=== PATIENT | female | born 2000 | race Caucasian/White ===

== ENCOUNTER 2021-01-05 21:09 | Inpatient (IN) ==
[2021-01-05] MEDS ORDERED: ONDANSETRON 4 MG/2 ML VIAL IV PRN (21:19)
[2021-01-05] MEDS ORDERED: MEPERIDINE 50 MG/1 ML VIAL IV PRN (21:19)
[2021-01-05 22:01] LABS: Basophils # 0.1 10*3/uL (0.0-0.2); Basophils % 0.4 % (0.0-0.8); Eosinophils # 0.1 10*3/uL (0.0-0.87); Eosinophils % 0.8 % (0.00-10.9); Hematocrit 32.6 VOL% (35.7-47.0); Hemoglobin 10.8 GM/DL (12.0-16.0); Immature Granulocytes % 0.7 %; Immature Granulocytes Absolute 0.08 #; Lymphocytes # 3.7 10*3/uL (1.4-4.0); Lymphocytes % 31.6 % (21.3-54.2); Mean Corpuscular HGB Conc 33.1 GM/DL (32-36); Mean Corpuscular Volume 89.6 FL (87-102); Mean Platelet Volume 11.3 FL (9.6-12.0); Monocytes % 7.2 % (1.7-12.7); Neutrophils % 59.3 % (38.7-73.9); Platelet Count 296 T/CUMM (130-400); Red Blood Count 3.64 MC/CUMM (3.8-5.5); Red Cell Distribution Width 12.8 % (9.3-17.3); White Blood Count 11.7 T/CUMM (4-12)
[2021-01-05 22:24] LABS: Albumin 2.8 G/DL (3.4-5.0); Bilirubin,Total 0.7 MG/DL (0.20-1.00); Calcium 8.4 MG/DL (8.5-10.1); Osmolality,Calculated 267.8 MOS/KG (273-304); Potassium 3.5 MMOL/L (3.5-5.1)
[2021-01-06] MEDS: LACTATED RINGERS 1,000 ML IV SCH ×3 (00:14→22:35)
[2021-01-06] MEDS: BUTORPHANOL 2 MG/ML VIAL IV PRN ×2 (14:02→17:21)
[2021-01-06] MEDS ORDERED: FAMOTIDINE 20 MG/2 ML VIAL IV ONE (19:09)
[2021-01-06] MEDS ORDERED: PROMETHAZINE 25 MG/1 ML VIAL IM PRN (19:09)
[2021-01-06] MEDS ORDERED: NALOXONE 0.4 MG/ML VIAL IV PRN (19:09)
[2021-01-06] MEDS ORDERED: ePHEDrine 50 MG/ML VIAL IV PRN (19:09)
[2021-01-06] MEDS ORDERED: CITRIC ACID/SODIUM CITRATE 30 ML UDCUP PO ONE (19:09)
[2021-01-06] MEDS ORDERED: hydrOXYzine HCL 25 MG/1 ML VIAL IM PRN (19:09)
[2021-01-06] MEDS ORDERED: LACTATED RINGERS 1,000 ML IV ONE (19:09)
[2021-01-06] MEDS ORDERED: diphenhydrAMINE 50 MG/1 ML VIAL IV PRN (19:09)
[2021-01-06] MEDS: fentaNYL 2 MCG/ROPIV 0.2% EPID 100 ML EPIDURAL SCH (20:11)
[2021-01-06 21:36] LABS: Bacteria,Urine Occasional /HPF (Few); Bilirubin,Urine Negative (Negative); Blood, Urine Small mg/dL (Negative); Glucose,Urine (UA) Negative (Negative); Ketones,Urine 80 mg/dL (Negative); Mucus,Urine Occasional /LPF (Occasional); Nitrite,Urine Negative (Negative); Protein,Urine 30 MG/DL; RBC,Urine 5 /HPF (0-4); Squamous Epithelial Cell,Urine Occasional /HPF (0-10); Urine Appearance CLEAR (Clear); Urine Color Yellow (Yellow); Urine Specific Gravity 1.013 (1.001-1.035)
[2021-01-07] MEDS ORDERED: METHYLERGONOVINE 0.2 MG/1 ML AMP IM PRN (03:44)
[2021-01-07] MEDS ORDERED: CARBOPROST TROMETHAMINE 250 MCG/ML AMP IM PRN (03:44)
[2021-01-07] MEDS ORDERED: miSOPROStoL 200 MCG TABLET VAG PRN (03:44)
[2021-01-07] MEDS ORDERED: LIDOCAINE 1% 50 ML VIAL ONE (03:51)
[2021-01-07] MEDS ORDERED: OXYTOCIN/LR 20 UNIT/1,000 ML BAG IV PRN (04:00)
[2021-01-07] MEDS ORDERED: TRANEXAMIC ACID 1,000 MG in SODIUM CHLORIDE 0.9% 100 ML IV PRN (04:00)
[2021-01-07 07:45] LABS: Cord Venous Blood HCO3 19.8 MMOL/L; Cord Venous Blood PCO2 43.2 MMHG; Cord Venous Blood PO2 22.8
[2021-01-07 07:50] LABS: Cord Arterial Blood HCO3 18.9 MMOL/L
[2021-01-07] MEDS ORDERED: MEASLES/MUMPS/RUBELLA VACCINE 0.5 ML VIAL SUBCUT ONE (10:21)
[2021-01-07] MEDS ORDERED: RHO(D) IMMUNE GLOBULIN 300 MCG SYRINGE IM ONE (10:21)
[2021-01-07] MEDS ORDERED: HYDROCORTISONE 2.5% RECTAL CREAM 30 GM TUBE TOP PRN (10:21)
[2021-01-07] MEDS ORDERED: LANOLIN 50% CREAM 0.3 OZ TUBE TOP PRN (10:21)
[2021-01-07] MEDS ORDERED: oxyCODONE/ACETAMINOPHEN 5-325 MG TABLET PO PRN ×2 (10:21)
[2021-01-07] MEDS ORDERED: DIPH/TET/ACEL PERT BOOSTER VACCINE 0.5 ML VIAL IM ONE (10:21)
[2021-01-07] MEDS ORDERED: ONDANSETRON 4 MG/2 ML VIAL IV PRN (10:21)
[2021-01-07] MEDS ORDERED: ACETAMINOPHEN 325 MG TABLET PO PRN (10:21)
[2021-01-07] MEDS ORDERED: BENZOCAINE 20%/MENTHOL 0.5% SPRAY 56 GM CAN TOP PRN (10:21)
[2021-01-07] MEDS ORDERED: OXYTOCIN/LR 20 UNIT/1,000 ML BAG IV ONE (10:21)
[2021-01-07] MEDS ORDERED: WITCH HAZEL PADS 100/JAR TOP PRN (10:21)
[2021-01-07] MEDS ORDERED: BISACODYL 10 MG SUPP RECTAL PRN (10:21)
[2021-01-07] MEDS: DOCUSATE SODIUM 100 MG CAPSULE PO SCH ×2 (11:10→20:18)
[2021-01-07] MEDS: IBUPROFEN 800 MG TABLET PO PRN ×2 (15:28→21:15)
[2021-01-07] MEDS: LACTATED RINGERS 1,000 ML IV SCH (18:20)
[2021-01-07] MEDS: fentaNYL 2 MCG/ROPIV 0.2% EPID 100 ML EPIDURAL SCH (18:22)
[2021-01-08 05:56] LABS: Basophils # 0.1 10*3/uL (0.0-0.2); Basophils % 0.4 % (0.0-0.8); Eosinophils # 0.2 10*3/uL (0.0-0.87); Hematocrit 33.3 VOL% (35.7-47.0); Hemoglobin 10.6 GM/DL (12.0-16.0); Immature Granulocytes Absolute 0.19 #; Lymphocytes # 5.7 10*3/uL (1.4-4.0); Lymphocytes % 30.2 % (21.3-54.2); Mean Corpuscular HGB Conc 31.8 GM/DL (32-36); Mean Corpuscular Volume 91.7 FL (87-102); Mean Platelet Volume 11.2 FL (9.6-12.0); Monocytes % 4.6 % (1.7-12.7); Neutrophils % 62.8 % (38.7-73.9); Platelet Count 240 T/CUMM (130-400); Red Blood Count 3.63 MC/CUMM (3.8-5.5); Red Cell Distribution Width 13.2 % (9.3-17.3); White Blood Count 18.7 T/CUMM (4-12)
[2021-01-08] MEDS: IBUPROFEN 800 MG TABLET PO PRN ×2 (09:10→21:30)
[2021-01-08] MEDS: DOCUSATE SODIUM 100 MG CAPSULE PO SCH ×2 (09:11→21:27)
[2021-01-09 08:59] VITALS: BP 128/84
[2021-01-09] MEDS: DOCUSATE SODIUM 100 MG CAPSULE PO SCH (09:46)
== END 2021-01-09 11:11 | disposition home or self-care (01) | DRG 560 ==
LOC: N.LDOUT 21:09 → N.LD 21:10 → N.OB 01-07 09:17 → N.LD 01-07 09:23 → N.OB 01-07 10:17
PROVIDERS: ADMIT Specialist; ATTEND Specialist